=== PATIENT | female | born 1960 | race Caucasian/White ===

== ENCOUNTER 2016-11-30 13:17 | Emergency (ER) | payer MEDICARE ==
[2016-11-30 15:22] VITALS: BP 135/81
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
== END 2016-11-30 16:19 | disposition home or self-care (01) ==
LOC: UCEAST 13:17
DX: B02.9 Zoster without complications (principal)
CPT/HCPCS: 99211; G0463